=== PATIENT | male | born 1945 | race Caucasian/White ===

== ENCOUNTER 2021-06-16 14:17 | Inpatient (IN) ==
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
[2021-06-16] MEDS ORDERED: HYDROmorphone INJ 1 MG/ML SYRINGE IV STA ×2 (15:22→16:34)
[2021-06-16 15:50] LABS: Basophils # (auto) 0.05 K/uL (0-0.2); Basophils % (auto) 0.5 %; Eosinophils # (auto) 0.12 K/uL (0-0.5); Eosinophils % (auto) 1.3 %; Hematocrit (blood only) 37.5 % (42-52); Hemoglobin 13.5 g/dL (14.0-18.0); Immature Granulocytes # (auto) 0.01 K/uL (0.00-0.02); Immature Granulocytes % (auto) 0.1 %; Lymphocytes # (auto) 1.35 K/uL (1.2-3.4); Lymphocytes % (auto) 14.4 %; Mean Corpuscular Hemoglobin 32.4 pg (25-34); Mean Corpuscular Volume 89.9 fL (80-100); Mean Platelet Volume 8.8 fL (7.4-10.4); Monocytes # (auto) 0.91 K/uL (0.11-0.59); Monocytes % (auto) 9.7 %; Neutrophils # (auto) 6.94 K/uL (1.4-6.5); Platelet Count 282 K/uL (130-400); RDW Coefficient of Variation 13.5 % (11.5-14.5); RDW Standard Deviation 44.8 fL (36.4-46.3); Red Blood Count 4.17 M/uL (4.7-6.1); White Blood Count 9.38 K/uL (4.8-10.8)
[2021-06-16 16:12] LABS: Alanine Aminotransferase 15 U/L (12-78); Albumin Level 3.2 gm/dl (3.4-5.0); Aspartate Aminotransferase 13 U/L (15-37); Blood Urea Nitrogen 15 mg/dl (7-18); Calcium 9.2 mg/dl (8.5-10.1); Carbon Dioxide 26 mmol/L (21-32); Chloride 104 mmol/L (98-107); Est GFR (African American) 100.2 ml/min; Est GFR (Non-African American) 86.5 ml/min; Glucose 132 mg/dl (70-99); Potassium 3.4 mmol/L (3.5-5.1); Sodium 137 mmol/L (136-145)
[2021-06-16 16:15] LABS: Alkaline Phosphatase 47 U/L (45-117); Bilirubin,Total 0.9 mg/dl (0.2-1); Globulin 3.1 gm/dl (2.5-4.0); Total Protein 6.3 gm/dl (6.4-8.2)
--- NOTE | 2021-06-16 16:21 | CT Scan Report ---
LUMBAR SPINE CT WITHOUT CONTRAST CLINICAL HISTORY: severe back pain radiating down R leg COMPARISON STUDY: No previous studies for comparison. TECHNIQUE: Axial images of the lumbar spine were obtained without IV contrast. Sagittal and coronal r econstructions were viewed. Automated exposure control was utilized for the study. A dose lowering t echnique was utilized adhering to the principles of ALARA. FINDINGS: For purposes of numbering on this exam, L5-S1 disc space is assigned to axial image 247 of 292. Alignment of the lumbar spine is anatomic. There is no acute fracture. There is no suspicious le jennie by CT. Numerous bilateral renal calculi measure up to 5 mm. There is no hydronephrosis. Paravert ebral soft tissues are unremarkable. There is moderate multilevel facet arthrosis and degenerative di sc disease within the lumbar spine. The central canal and neural foramen are suboptimally assessed by CT. Central canal stenosis is most pronounced at L3-L4. There is probable moderate central canal fang nosis at this level. There is also a probable right paracentral disc herniation with inferior subliga mentous migration. This has mass effect upon the descending right L4 nerve root. There is moderate mu ltilevel neural foraminal stenosis. IMPRESSION: 1. No acute lumbar spine fracture or subluxation. 2. Multilevel degenerative disc disease and facet arthrosis within the lumbar spine. Suboptimal evalu ation of the central canal and neural foramen given CT technique. Suspected moderate central canal st enosis at L3-L4 with a probable right paracentral disc herniation with inferior subligamentous migrat ion. Severe narrowing of the right lateral recess with probable mass effect upon the descending right L4 nerve root. MRI could be obtained for confirmation. 3. Moderate multilevel neural foraminal stenosis. 4. Bilateral nephrolithiasis. ACT 112: Negative or not required by law. Electronically signed by: Jorge Alberto Joyce M.D. 06/16/2021 4:19 PM
[2021-06-16] MEDS ORDERED: ONDANSETRON 4 MG OD TAB PO PRN (20:41)
[2021-06-16] MEDS ORDERED: NALOXONE HCL 0.4 MG/1 ML VIAL/CARP IV PRN (20:41)
[2021-06-16] MEDS ORDERED: ACETAMINOPHEN 500 MG TAB PO PRN (20:41)
[2021-06-16] MEDS ORDERED: ACETAMINOPHEN 1,000 MG/100 ML VIAL IV PRN (20:41)
[2021-06-16] MEDS ORDERED: traMADol HCL 50 MG TABLET PO PRN (20:41)
[2021-06-16] MEDS ORDERED: PROMETHAZINE HCL 12.5 MG in SODIUM CHLORIDE 0.9% 50 ML IV PRN (20:41)
[2021-06-16] MEDS ORDERED: METOCLOPRAMIDE HCL INJ 5 MG/ML 2 ML VIAL IV PRN (20:41)
[2021-06-16] MEDS ORDERED: SODIUM CHLORIDE 0.9% 1000ML 1,000 ML IV SCH (20:41)
[2021-06-16] MEDS ORDERED: ONDANSETRON INJ 2 MG/ML 2 ML VIAL IV PRN (20:41)
[2021-06-16] MEDS: HYDROmorphone INJ 0.5 MG/0.5 ML SYR IV PRN (20:58)
[2021-06-16] MEDS ORDERED: POTASSIUM CHLORIDE 40 MEQ in SODIUM CHLORIDE 0.9% 1000ML 1,000 ML IV ONE (20:59)
[2021-06-16 21:15] LABS: Magnesium 1.8 mg/dl (1.8-2.4)
--- NOTE | 2021-06-16 21:42 | Hospitalist Consultation ---
Date of Consultation June 16, 2021 Assessment & Plan (1) Lumbar radiculopathy: Final Assessment and Recommendations as follows : Traumatic lumbar radiculopathy Worsening symptoms over the last 3 months Failed outpatient treatment hypertension, slightly elevated secondary discomfort hyperlipidemia on statin Rx prostate cancer status post surgery/radiation Hypokalemia secondary to home diuretic Rx Hyperglycemia rule out DM past tobacco abuse. Management of lumbar radiculopathy as per Orthopedics spine service. Analgesia, no NSAIDs please given elevated BP Replace potassium, hold home diuretic for now Check hemoglobin A1c SCDs for DVT prophylaxis; pharmacologic anticoagulation possibly held due to potential spine procedure Thank you very much for this consultation. Dr. Ge will follow patient's progress. Text document was generated using [employer] voice recognition software. It may contain grammatical or spelling errors. Kindly contact undersigned for clarification of any documentation item in question. History of Present Illness Reason for Consultation: Medical management Requesting Physician: Dr. Reddy Attending Physician: Bereket Reddy DO History of Present Illness PCP : Dr. Cheung History obtained from patient and records. Medical history significant for hypertension, hyperlipidemia, prostate cancer status post surgery/radiation, GERD, gout, past tobacco abuse. 3 months ago, patient developed L SS/disc herniation at L3-L4 as a result of jumping into a 4 feet swimming pool. Persistent right low back pain going to the right leg. Pain uncontrolled by pain medications and outpatient steroid injections. Patient saw Orthopedic housing development specialist last week who recommended decompressive surgery once with schedule. 3 days ago, patient noted worsening back pain after he tried to bend and reach over for an object. Unable to get up from bed. No fever, no chills. No incontinence symptoms. Patient consulted ER today. Lumbar spine CT report as follows: 1. No acute lumbar spine fracture or subluxation. 2. Multilevel degenerative disc disease and facet arthrosis within the lumbar spine. Suboptimal evaluation of the central canal and neural foramen given CT technique. Suspected moderate central canal stenosis at L3-L4 with a probable right paracentral disc herniation with inferior subligamentous migration. Severe narrowing of the right lateral recess with probable mass effect upon the descending right L4 nerve root. MRI could be obtained for confirmation. 3. Moderate multilevel neural foraminal stenosis. 4. Bilateral nephrolithiasis. Patient currently admitted under Orthopedics spine service. Patient currently more comfortable. Denies chest pain, S OB. Medical History as above Surgical History : Prostate surgery Family History : DM Personal/Social history : Past tobacco abuse, occasional EtOH intake, retired police lieutenant Allergies Allergy/AdvReac Type Severity Reaction Status Date / Time Tetanus Vaccines and Toxoid Allergy Intermediate Rash Verified 06/16/21 16:29 Home Medications Medication Instructions Recorded Confirmed Type Lactobacillus acidophilus 10 10,000 mmu cells PO DAILY 06/16/21 06/16/21 History billion cell capsule (Probiotic) allopurinol 100 mg tablet 100 mg PO QPM 06/16/21 06/16/21 History aspirin 81 mg tablet,delayed 81 mg PO QPM 06/16/21 06/16/21 History release atorvastatin 20 mg tablet 20 mg PO QPM 06/16/21 06/16/21 History chlorthalidone 25 mg tablet 25 mg PO QPM 06/16/21 06/16/21 History lisinopril 20 mg tablet 20 mg PO QPM 06/16/21 06/16/21 History magnesium oxide 400 mg (241.3 mg 400 mg PO QPM 06/16/21 06/16/21 History magnesium) tablet omeprazole 20 mg capsule,delayed 20 mg PO QPM 06/16/21 06/16/21 History release Patient History Medical History (Updated 06/16/21 @ 23:41 by Ana Chow PA-C) Dyslipidemia GERD (gastroesophageal reflux disease) Gout HTN (hypertension) Prostate cancer Surgical History No pertinent past surgical history Social History Smoking Status: Light tobacco smoker Second Hand Exposure: No; Do You Dip or Chew Tobacco: No; Tobacco Cessation Education Requested by Patient: No Hx Alcohol Use: No Preferred Language: Icelandic Communication Ability: Effective 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 Beliefs That Will Affect Care: None Current Living Situation: Spouse Other Information That Helps Us Care for You: No Feels Safe at Home: Yes Safety Concerns: Feels Safe At This Time Assistive Devices: Cane, Crutches and Walker Review of Systems Review of Systems: As per HPI, all 10 systems reviewed, all other ROS negative Physical Exam Physical Exam: GENERAL: Comfortable, pleasant, no respiratory distress SKIN: Normal color, warm HEENT: [place] palpebral conjunctivae, no ptosis, dry buccal mucosa NECK : Supple, no tenderness CHEST : CTA, no tenderness HEART : RRR, no obvious murmurs ABDOMEN: Some distention, nontender BACK : Minimal right flank tenderness EXTREMITIES : No LE swelling/tenderness, no other conspicuous deformities noted NEUROLOGIC : Coherent, no facial asymmetry, no other gross focality Results & Data Results & Data ([facility]) Vital Signs (Past 12 Hours) Vital Signs Temp Pulse Pulse Pulse Resp BP BP 06/16/21 20:40 36.6 C 85 16 06/16/21 20:08 80 18 141/80 H 06/16/21 18:00 68 18 139/94 06/16/21 16:08 78 18 151/80 H 06/16/21 14:28 36.5 C 68 18 131/71 BP Pulse Ox 06/16/21 20:40 154/69 H 97 06/16/21 20:08 98 06/16/21 18:00 95 06/16/21 16:08 98 06/16/21 14:28 97 Laboratory Results Laboratory Results WBC 9.38 K/uL (4.8-10.8) 06/16/21 15:35 RBC 4.17 M/uL (4.7-6.1) L 06/16/21 15:35 Hgb 13.5 g/dL (14.0-18.0) L 06/16/21 15:35 Hct 37.5 % (42-52) L 06/16/21 15:35 MCV 89.9 fL (80-100) 06/16/21 15:35 MCH 32.4 pg (25-34) 06/16/21 15:35 MCHC 36.0 g/dL (32-36) 06/16/21 15:35 RDW Std Deviation 44.8 fL (36.4-46.3) 06/16/21 15:35 RDW Coeff of Bertha 13.5 % (11.5-14.5) 06/16/21 15:35 Plt Count 282 K/uL (130-400) 06/16/21 15:35 MPV 8.8 fL (7.4-10.4) 06/16/21 15:35 Immature Gran % (Auto) 0.1 % 06/16/21 15:35 Neut % (Auto) 74.0 % 06/16/21 15:35 Lymph % (Auto) 14.4 % 06/16/21 15:35 [place] % (Auto) 9.7 % 06/16/21 15:35 Eos % (Auto) 1.3 % 06/16/21 15:35 Baso % (Auto) 0.5 % 06/16/21 15:35 Neut # (Auto) 6.94 K/uL (1.4-6.5) H 06/16/21 15:35 Lymph # (Auto) 1.35 K/uL (1.2-3.4) 06/16/21 15:35 [place] # (Auto) 0.91 K/uL (0.11-0.59) H 06/16/21 15:35 Eos # (Auto) 0.12 K/uL (0-0.5) 06/16/21 15:35 Baso # (Auto) 0.05 K/uL (0-0.2) 06/16/21 15:35 Immature Gran # (Auto) 0.01 K/uL (0.00-0.02) 06/16/21 15:35 Sodium 137 mmol/L (136-145) 06/16/21 15:35 Potassium 3.4 mmol/L (3.5-5.1) L 06/16/21 15:35 Chloride 104 mmol/L (98-107) 06/16/21 15:35 Carbon Dioxide 26 mmol/L (21-32) 06/16/21 15:35 Anion Gap 8.0 (3-11) 06/16/21 15:35 BUN 15 mg/dl (7-18) 06/16/21 15:35 Creatinine 0.78 mg/dl (0.6-1.4) 06/16/21 15:35 Est Cr Clr Drug Dosing Not Reportable 06/16/21 15:35 Est GFR ( Amer) 100.2 ml/min 06/16/21 15:35 Est GFR (Non-Af Amer) 86.5 ml/min 06/16/21 15:35 BUN/Creatinine Ratio 19.0 (10-20) 06/16/21 15:35 Glucose 132 mg/dl (70-99) H 06/16/21 15:35 Calcium 9.2 mg/dl (8.5-10.1) 06/16/21 15:35 Magnesium 1.8 mg/dl (1.8-2.4) 06/16/21 15:35 Total Bilirubin 0.9 mg/dl (0.2-1) 06/16/21 15:35 AST 13 U/L (15-37) L 06/16/21 15:35 ALT 15 U/L (12-78) 06/16/21 15:35 Alkaline Phosphatase 47 U/L (45-117) 06/16/21 15:35 Total Protein 6.3 gm/dl (6.4-8.2) L 06/16/21 15:35 Albumin 3.2 gm/dl (3.4-5.0) L 06/16/21 15:35 Globulin 3.1 gm/dl (2.5-4.0) 06/16/21 15:35 Albumin/Globulin Ratio 1.0 (0.9-2) 06/16/21 15:35 COVID-19 Eval Order Covid19 at [facility] 06/16/21 16:25 SARS-CoV-2 (PCR) NEGATIVE (Negative) 06/16/21 16:[address] 06/16/21 15:[address] WITHOUT CONTRAST CLINICAL HISTORY: severe back pain radiating down R leg COMPARISON STUDY: No previous studies for comparison. TECHNIQUE: Axial images of the lumbar spine were obtained without IV contrast. Sagittal and coronal reconstructions were viewed. Automated exposure control was utilized for the study. A dose lowering technique was utilized adhering to the principles of ALARA. FINDINGS: For purposes of numbering on this exam, L5-S1 disc space is assigned to axial image 247 of 292. Alignment of the lumbar spine is anatomic. There is no acute fracture. There is no suspicious lesion by CT. Numerous bilateral renal calculi measure up to 5 mm. There is no hydronephrosis. Paravertebral soft tissues are unremarkable. There is moderate multilevel facet arthrosis and degenerative disc disease within the lumbar spine. The central canal and neural foramen are suboptimally assessed by CT. Central canal stenosis is most pronounced at L3-L4. There is probable moderate central canal stenosis at this level. There is also a probable right paracentral disc herniation with inferior subligamentous migration. This has mass effect upon the descending right L4 nerve root. There is moderate multilevel neural foraminal stenosis. IMPRESSION: 1. No acute lumbar spine fracture or subluxation. 2. Multilevel degenerative disc disease and facet arthrosis within the lumbar spine. Suboptimal evaluation of the central canal and neural foramen given CT technique. Suspected moderate central canal stenosis at L3-L4 with a probable right paracentral disc herniation with inferior subligamentous migration. Severe narrowing of the right lateral recess with probable mass effect upon the descending right L4 nerve root. MRI could be obtained for confirmation. 3. Moderate multilevel neural foraminal stenosis. 4. Bilateral nephrolithiasis. ACT 112: Negative or not required by law. Electronically signed by: Jorge Alberto Joyce M.D. 06/16/2021 4:19 PM
[2021-06-16] MEDS: allopurinoL 100 MG TAB PO SCH (22:19)
[2021-06-16] MEDS: ATORVASTATIN 20 MG TAB PO SCH (22:19)
[2021-06-16] MEDS: PANTOprazole 40 MG TAB PO SCH (22:20)
[2021-06-16] MEDS: lisinopril 20 MG TAB PO SCH (23:14)
[2021-06-17] MEDS: HYDROmorphone INJ 0.5 MG/0.5 ML SYR IV PRN ×2 (00:05→04:37)
[2021-06-17 05:10] LABS: Estimated Average Glucose 137 mg/dl; Hemoglobin A1C 6.4 % (4.5-5.6)
[2021-06-17] MEDS: oxyCODONE HCL IR 5 MG TAB (IMMEDIATE RELEASE) PO PRN ×4 (06:16→23:22)
[2021-06-17] MEDS: HYDROmorphone INJ 1 MG/ML SYRINGE IV PRN ×3 (07:31→19:21)
[2021-06-17] MEDS: ADVANCED PROBIOTIC 1250 MG CAPSULE PO SCH (07:32)
[2021-06-17] MEDS ORDERED: POTASSIUM CHLORIDE CRTAB 20 MEQ TABCR PO STA (07:35)
--- NOTE | 2021-06-17 08:40 | XRay Report ---
XR chest 1V portable HISTORY: Preop. COMPARISON: None. FINDINGS: The lungs are clear. Cardiac silhouette is normal in size. No pleural effusions. No pneumot horax. IMPRESSION: No acute process. ACT 112: Negative or not required by law. Electronically signed by: Fadi Kate M.D. 06/17/2021 8:38 AM
--- NOTE | 2021-06-17 08:55 | History & Physical Report ---
Date of Service June 17, 2021 Assessment & Plan (1) Lumbar radiculopathy: Plan: At this point patient's condition has progressively worsened. He has had neurologic decline resulting in weakness in the right leg. He is unable to walk at this point. I discussed options with the patient and believe he would benefit from undergoing emergent lumbar decompression and fusion to address the canal stenosis as well as the disc herniation. We discussed the risks and benefits of the surgery itself I would like to proceed. We will make him n.p.o. after midnight and likely be able to do his case tomorrow if medically appropriate. Admission and Anticipated Discharge Date Admission Date: June 16, 2021 History of Present Illness Chief Complaint: Right leg weakness Primary Care Provider: Alonzo Madrigal Skye Patient is a pleasant 76-year-old male who has been having difficulties with pain coming from the right buttock going down the right thigh. Originally it was thought that he had an issue with his hip. He did undergone an MRI of his right hip with minimal pathology noted. An MRI of his lumbar spine revealed an L3-4 right-sided disc herniation with inferior migration or free fragment he was treated through pain management as an outpatient. Over the past 3 days he has had significant increase in pain in the right leg when he leaned forward to pick something up. He contacted the office stating that he was unable to walk and is referred to the emergency room. He was given pain medications as well as steroids and the pain was somewhat better in the emergency room. This morning however his pain is worse. He can barely roll over in bed. He is afraid to try to stand and walk as his right leg feels weak and feels it is going to give out. He is not having symptoms on the left-hand side. He denies any other numbness, tingling, or paresthesias. Allergies Allergy/AdvReac Type Severity Reaction Status Date / Time Tetanus Vaccines and Toxoid Allergy Intermediate Rash Verified 06/16/21 16:29 Home Medications Medication Instructions Recorded Confirmed Type Lactobacillus acidophilus 10 10,000 mmu cells PO DAILY 06/16/21 06/16/21 History billion cell capsule (Probiotic) allopurinol 100 mg tablet 100 mg PO QPM 06/16/21 06/16/21 History aspirin 81 mg tablet,delayed 81 mg PO QPM 06/16/21 06/16/21 History release atorvastatin 20 mg tablet 20 mg PO QPM 06/16/21 06/16/21 History chlorthalidone 25 mg tablet 25 mg PO QPM 06/16/21 06/16/21 History lisinopril 20 mg tablet 20 mg PO QPM 06/16/21 06/16/21 History magnesium oxide 400 mg (241.3 mg 400 mg PO QPM 06/16/21 06/16/21 History magnesium) tablet omeprazole 20 mg capsule,delayed 20 mg PO QPM 06/16/21 06/16/21 History release Past Med/Surg History Medical History Anemia Dyslipidemia GERD (gastroesophageal reflux disease) Gout HTN (hypertension) Prostate cancer Smoker Surgical History No pertinent past surgical history Social History Smoking Status: Light tobacco smoker Second Hand Exposure: No; Do You Dip or Chew Tobacco: No; Tobacco Cessation Education Requested by Patient: No Hx Alcohol Use: No Preferred Language: Kittitian Communication Ability: Effective 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 He is in visible distress he has difficulties rolling from side to side. His motor exam is limited secondary to pain but there is weakness with a strength of 3+ out of 5 in the right quadriceps compared to left. Remaining strength is 5 out of 5 throughout his sensation is altered in L3 distribution on the right-hand side to sharp and dull. He is nontender with logrolling of the hips. His abdomen soft nontender his calves are supple nontender. Cardiovascular exam reveals no gross abnormalities. Skin is intact. Results & Data Results & Data ([facility]) Vital Signs (Past 12 Hours) Vital Signs Temp Pulse Pulse Resp BP Pulse Ox 06/17/21 07:12 36.7 C 72 18 132/71 94 06/16/21 22:21 36.6 C 68 16 135/[address] scan of the lumbar spine that was performed recently was compared to an MRI that was performed in March of this year. There is baseline stenosis at L3-4 with a right paracentral disc herniation with inferior migration of free fragment appears to be somewhat larger than noted on the CT scan. There is multilevel spondylosis no fractures are noted. Code Status & VTE Plan VTE Prophylaxis Plan VTE Prophylaxis will be ordered: Yes
--- NOTE | 2021-06-17 16:06 | Anesthesiology Consultation ---
Date of Service June 17, 2021 Assessment & Plan (1) Encounter for pre-operative examination: Chart Review Chart Review: entry level finance initiated History Surgery Operation Date: 06/18/21 08:25 Proposed Procedures p L3-L4 Decompression Fusion - Bereket Reddy DO Height/Weight Height: 5 ft 9 in Weight: 71.5 kg Allergies Allergy/AdvReac Type Severity Reaction Status Date / Time Tetanus Vaccines and Toxoid Allergy Intermediate Rash Verified 06/16/21 16:29 Medications Home Medications Medication Instructions Recorded Confirmed Last Taken Lactobacillus acidophilus 10 10,000 mmu cells PO DAILY 06/16/21 06/16/21 06/16/21 billion cell capsule (Probiotic) allopurinol 100 mg tablet 100 mg PO QPM 06/16/21 06/16/21 06/16/21 aspirin 81 mg tablet,delayed 81 mg PO QPM 06/16/21 06/16/21 06/16/21 release atorvastatin 20 mg tablet 20 mg PO QPM 06/16/21 06/16/21 06/16/21 chlorthalidone 25 mg tablet 25 mg PO QPM 06/16/21 06/16/21 06/16/21 lisinopril 20 mg tablet 20 mg PO QPM 06/16/21 06/16/21 06/16/21 magnesium oxide 400 mg (241.3 mg 400 mg PO QPM 06/16/21 06/16/21 06/16/21 magnesium) tablet omeprazole 20 mg capsule,delayed 20 mg PO QPM 06/16/21 06/16/21 06/16/21 release Active Medications Generic Name Dose Route Start Last Admin Trade Name Freq PRN Reason Stop Dose Admin Allopurinol 100 mg 06/16/21 21:00 06/16/21 22:19 Allopurinol 100 Mg Tab PO 07/16/21 20:59 Not Given QPM JOSUE Atorvastatin Calcium 20 mg 06/16/21 21:00 06/16/21 22:19 Atorvastatin 20 Mg Tab PO 07/16/21 20:59 Not Given QPM JOUSE Hydromorphone HCl 0.5 mg 06/16/21 20:41 06/17/21 04:37 Hydromorphone Inj 0.5 Mg/0.5 Ml Syr IV 06/30/21 20:40 0.5 mg Q3H PRN Administration MOD pain (scale 4-6) & Pre PT Hydromorphone HCl 1 mg 06/16/21 20:41 06/17/21 11:39 Hydromorphone Inj 1 Mg/Ml Syringe IV 06/30/21 20:40 1 mg Q3H PRN Administration severe pain (scale 7-10) Lactobacillus Acidoph/Casei/Rhamnos 2 cap 06/17/21 09:00 06/17/21 07:32 Advanced Probiotic 1250 Mg Capsule PO 07/17/21 08:59 2 cap DAILY JOSUE Administration Lisinopril 20 mg 06/16/21 21:05 06/16/21 23:14 Lisinopril 20 Mg Tab PO 07/16/21 21:04 Not Given QPM JOSUE Ondansetron HCl 4 mg 06/16/21 20:41 06/17/21 06:14 Ondansetron Inj 2 Mg/Ml 2 Ml Vial IV 07/16/21 20:40 4 mg Q6H PRN Administration Nausea &/or Vomiting Oxycodone HCl 5 - 10 mg 06/16/21 20:41 06/17/21 10:24 Oxycodone Hcl Ir 5 Mg Tab (Immediate Release) PO 06/30/21 20:40 10 mg Q4H PRN Administration mod to severe pain Pantoprazole Sodium 40 mg 06/16/21 21:00 06/16/21 22:20 Pantoprazole 40 Mg Tab PO 07/16/21 20:59 Not Given QPM JOSUE NPO Date Last Intake of Fluids: 06/16/21 Time Last Intake of Fluids: 21:00 Past Medical History Medical History Dyslipidemia GERD (gastroesophageal reflux disease) Gout HTN (hypertension) Prostate cancer Past Surgical History Surgical History No pertinent past surgical history Social History Smoking Status: Light tobacco smoker tobacco type: cigars Do You Dip or Chew Tobacco: No Hx Alcohol Use: No substance use type: prescription drug Physical Exam Vital Signs Last Vital Signs Temp 97.7 F 06/17/21 15:29 Pulse 74 06/17/21 15:29 Resp 18 06/17/21 15:29 BP 123/71 06/17/21 15:29 Pulse Ox 95 06/17/21 15:29 Testing Laboratory Results 06/16/21 15:35 06/16/21 15:35 Hemoglobin A1c 6.4 % (4.5-5.6) H 06/16/21 15:35 Laboratory Tests 06/16/21 16:25 SARS-CoV-2 (PCR) NEGATIVE Electrocardiogram Date: 06/17/21 Findings: + NSR @ (66 bpm) Chest X-Ray Date: 06/17/21 Findings: + NAD
[2021-06-17] MEDS ORDERED: GLUCAGON FOR INJ 1 MG VIAL SQ PRN (16:50)
[2021-06-17] MEDS ORDERED: GLUCOSE 10 TABS/TUBE PO PRN (16:50)
[2021-06-17] MEDS ORDERED: GLUCOSE 40% GEL 15 GM TUBE PO PRN (16:50)
[2021-06-17] MEDS ORDERED: DEXTROSE 50% 50 ML SYRINGE IV PRN (16:50)
[2021-06-17] MEDS ORDERED: CARBOHYDRATES FOR HYPOGLYCEMIA PO PRN (16:50)
--- NOTE | 2021-06-17 16:54 | Hospitalist Progress Note ---
Date of Service June 17, 2021 Assessment & Plan (1) Lumbar radiculopathy: Plan: This is a 76-year-old male who has significant past medical history of HTN, HLD, gout, GERD who presents to ED secondary to worsening symptoms of lumbar radiculopathy. Plan to undergo Lumbar decompression fusion of L3-[address] Reddy. CXR and EKG reviewed. Pt able to perform at least 4 METS of activity at baseline w/o cardiac symptoms. From a medical standpoint he is cleared for surgery Pt admitted to med/surg defer pain management and therapy to Orthopedics Make NPO after midnight Possible procedure in a.m. (2) HTN (hypertension): Plan: Bp stable continue lisinopril with parameters hold chlorthalidone (3) Dyslipidemia: Plan: continue statin (4) Pre-diabetes: Plan: hyperglycemia noted in ED A1C 6.4 will consult hematology nurse educator monitor accuchecks, if bsg consistently > 180 will add coverage anticipate hyperglycemia post op (5) GERD (gastroesophageal reflux disease): Plan: continue PPI (6) Gout: Plan: continue allopurinol Plan: DVT ppx: SCD/TEDS, per surgery Dispo: per primary FULL CODE PCP: Skye Pt was seen and examined in collaboration with Dr. Ge, please see addendum Thank you for this consultation. We will follow the patient with you during their hospital stay. You can reach a member of the [facility] Hospitalist Team 15/03 via hospitalist role on tiger text. Admission and Anticipated Discharge Date Admission Date: June 16, 2021 Supervising Physician Co-Signing Physician Notes I have seen and examined the patient and have discussed the case with the provider above. I agree with the assessment and plan as stated. My examination reflects as above. N.p.o. midnight for lumbar decompression tomorrow. We will continue to manage medically. Subjective Patient was seen and examined in room 379-1. Follow up Lumbar Radiculopathy. Overall this morning he feels well except for low back pain. He denies f/c/s, chest pain, sob, n/v/d, abdominal pain. He is eating and drinking okay. Plan for surgery tomorrow. He denies any issues with CP/SOB as outpt. Denies hx of CAD or CHF. Admits to being able to walk 1 flight of stairs w/o chest pain or SOB but would experience back pain. Review of Systems Review of Systems: All systems reviewed & are unremarkable except as noted in HPI & below Physical Exam Physical Exam: Gen: WD/WN, M, NAD, A&O x3 HEENT: Normocephalic, atraumatic, conjunctivae moist, sclerae anicteric, mucous membranes moist. Lung: Clear to Auscultation bilaterally, no wheezes/rales/rhonchi Heart: Regular rate, regular rhythm, no murmurs, rubs, or gallops Abdomen: Soft, NT, ND +BS x 4 Extremities: No edema Skin: Warm, no rash, negative turgor. Results & Data Results & Data ([facility]) Vital Signs (Past 12 Hours) Vital Signs Temp Pulse Resp BP Pulse Ox 06/17/21 15:29 36.5 C 74 18 123/71 95 06/17/21 07:12 36.7 C 72 18 132/71 94 Diagnostic Findings Lumbar Spine CT 06/16/21 15:[address] WITHOUT CONTRAST CLINICAL HISTORY: severe back pain radiating down R leg COMPARISON STUDY: No previous studies for comparison. TECHNIQUE: Axial images of the lumbar spine were obtained without IV contrast. Sagittal and coronal reconstructions were viewed. Automated exposure control was utilized for the study. A dose lowering technique was utilized adhering to the principles of ALARA. FINDINGS: For purposes of numbering on this exam, L5-S1 disc space is assigned to axial image 247 of 292. Alignment of the lumbar spine is anatomic. There is no acute fracture. There is no suspicious lesion by CT. Numerous bilateral renal calculi measure up to 5 mm. There is no hydronephrosis. Paravertebral soft tissues are unremarkable. There is moderate multilevel facet arthrosis and degenerative disc disease within the lumbar spine. The central canal and neural foramen are suboptimally assessed by CT. Central canal stenosis is most pronounced at L3-L4. There is probable moderate central canal stenosis at this level. There is also a probable right paracentral disc herniation with inferior subligamentous migration. This has mass effect upon the descending right L4 nerve root. There is moderate multilevel neural foraminal stenosis. IMPRESSION: 1. No acute lumbar spine fracture or subluxation. 2. Multilevel degenerative disc disease and facet arthrosis within the lumbar spine. Suboptimal evaluation of the central canal and neural foramen given CT technique. Suspected moderate central canal stenosis at L3-L4 with a probable right paracentral disc herniation with inferior subligamentous migration. Severe narrowing of the right lateral recess with probable mass effect upon the descending right L4 nerve root. MRI could be obtained for confirmation. 3. Moderate multilevel neural foraminal stenosis. 4. Bilateral nephrolithiasis. ACT 112: Negative or not required by law. Electronically signed by: Jorge Alberto Joyce M.D. 06/16/2021 4:19 PM Chest X-Ray 06/17/21 07:36 XR chest 1V portable HISTORY: Preop. COMPARISON: None. FINDINGS: The lungs are clear. Cardiac silhouette is normal in size. No pleural effusions. No pneumothorax. IMPRESSION: No acute process. ACT 112: Negative or not required by law. Electronically signed by: Fadi Kate M.D. 06/17/2021 8:38 AM Medications Administered Medication List Allopurinol (Allopurinol 100 Mg Tab) 100 mg PO QPM JOSUE Stop: 07/16/21 20:59 Last Admin: 06/16/21 22:19 Dose: Not Given Documented by: [id number] Atorvastatin Calcium (Atorvastatin 20 Mg Tab) 20 mg PO QPM JOSEU Stop: 07/16/21 20:59 Last Admin: 06/16/21 22:19 Dose: Not Given Documented by: [id number] Hydromorphone HCl (Hydromorphone Inj 0.5 Mg/0.5 Ml Syr) 0.5 mg IV Q3H PRN PRN Reason: MOD pain (scale 4-6) & Pre PT Stop: 06/30/21 20:40 Last Admin: 06/17/21 04:37 Dose: 0.5 mg Documented by: [id number] Admin: 06/17/21 00:05 Dose: 0.5 mg Documented by: [id number] Admin: 06/16/21 20:58 Dose: 0.5 mg Documented by: [id number] Hydromorphone HCl (Hydromorphone Inj 1 Mg/Ml Syringe) 1 mg IV Q3H PRN PRN Reason: severe pain (scale 7-10) Stop: 06/30/21 20:40 Last Admin: 06/17/21 11:39 Dose: 1 mg Documented by: [id number] Admin: 06/17/21 07:31 Dose: 1 mg Documented by: [id number] Lactobacillus Acidoph/Casei/Rhamnos (Advanced Probiotic 1250 Mg Capsule) 2 cap PO DAILY JOSUE Stop: 07/17/21 08:59 Last Admin: 06/17/21 07:32 Dose: 2 cap Documented by: [id number] Lisinopril (Lisinopril 20 Mg Tab) 20 mg PO QPM JOSUE Stop: 07/16/21 21:04 Last Admin: 06/16/21 23:14 Dose: Not Given Documented by: [id number] Ondansetron HCl (Ondansetron Inj 2 Mg/Ml 2 Ml Vial) 4 mg IV Q6H PRN PRN Reason: Nausea &/or Vomiting Stop: 07/16/21 20:40 Last Admin: 06/17/21 06:14 Dose: 4 mg Documented by: [id number] Oxycodone HCl (Oxycodone Hcl Ir 5 Mg Tab (Immediate Release)) 5 - 10 mg PO Q4H PRN PRN Reason: mod to severe pain Stop: 06/30/21 20:40 Last Admin: 06/17/21 16:25 Dose: 10 mg Documented by: [id number] Admin: 06/17/21 10:24 Dose: 10 mg Documented by: [id number] Admin: 06/17/21 06:16 Dose: 10 mg Documented by: [id number] Pantoprazole Sodium (Pantoprazole 40 Mg Tab) 40 mg PO QPM JOSUE Stop: 07/16/21 20:59 Last Admin: 06/16/21 22:20 Dose: Not Given Documented by: [id number] Discontinued Medications Hydromorphone HCl (Hydromorphone Inj 1 Mg/Ml Syringe) 1 mg IV NOW STA Stop: 06/16/21 15:23 Last Admin: 06/16/21 15:44 Dose: 1 mg Documented by: [id number] Hydromorphone HCl (Hydromorphone Inj 1 Mg/Ml Syringe) 1 mg IV NOW STA Stop: 06/16/21 16:35 Last Admin: 06/16/21 16:44 Dose: 1 mg Documented by: [id number] Sodium Chloride (Nss 1000ml) 1,000 mls @ 75 mls/hr IV .[id number] JOSUE Stop: 07/16/21 20:40 Last Infusion: 06/16/21 21:09 Dose: 0 mls/hr Documented by: [id number] Admin: 06/16/21 20:59 Dose: 75 mls/hr Documented by: [id number] Potassium Chloride 40 meq/ (Sodium Chloride) 1,020 mls @ 60 mls/hr IV .Q17H ONE Stop: 06/17/21 13:58 Last Infusion: 06/17/21 14:44 Dose: 0 mls/hr Documented by: [id number] Admin: 06/16/21 21:08 Dose: 60 mls/hr Documented by: [id number] Methylprednisolone (Methylprednisolone 40 Mg/Ml Vial) 10 mg IV NOW STA Stop: 06/16/21 15:23 Last Admin: 06/16/21 15:45 Dose: 10 mg Documented by: [id number] Potassium Chloride (Potassium Chloride Crtab 20 Meq Tabcr) 40 meq PO NOW STA Stop: 06/17/21 07:36 Last Admin: 06/17/21 08:34 Dose: 40 meq Documented by: [id number] ECG Rate (beats per minute): 66 Rhythm: normal sinus
[2021-06-17] MEDS: lisinopril 20 MG TAB PO SCH (20:50)
[2021-06-17] MEDS: ATORVASTATIN 20 MG TAB PO SCH (20:50)
[2021-06-17] MEDS: allopurinoL 100 MG TAB PO SCH (20:50)
[2021-06-17] MEDS: PANTOprazole 40 MG TAB PO SCH (20:51)
[2021-06-17] MEDS ORDERED: SODIUM CHLORIDE 0.9% 500 ML IV ONE (23:14)
[2021-06-18] MEDS: POTASSIUM CHLORIDE 40 MEQ in SODIUM CHLORIDE 0.9% 1000ML 1,000 ML IV SCH ×2 (00:26→17:38)
[2021-06-18] MEDS: HYDROmorphone INJ 1 MG/ML SYRINGE IV PRN ×4 (01:45→11:25)
--- NOTE | 2021-06-18 05:11 | Electrocardiogram Report ---
Test Reason : Blood Pressure : / mmHG Vent. Rate : 066 BPM Atrial Rate : 066 BPM P-R Int : 134 ms QRS Dur : 094 ms QT Int : 412 ms P-R-T Axes : 035 003 004 degrees QTc Int : 431 ms Normal sinus rhythm Normal ECG No previous ECGs available Confirmed by Isiah Sahni ([id number]) on 06/18/2021 5:11:09 AM Referred By: Bereket Reddy Confirmed By:Isiah Sahni
[2021-06-18 07:37] LABS: Hematocrit (blood only) 37.6 % (42-52); Hemoglobin 12.9 g/dL (14.0-18.0); Mean Corpuscular Hgb Conc 34.3 g/dL (32-36); Mean Corpuscular Volume 93.3 fL (80-100); Mean Platelet Volume 9.1 fL (7.4-10.4); Platelet Count 273 K/uL (130-400); RDW Coefficient of Variation 13.6 % (11.5-14.5); RDW Standard Deviation 46.8 fL (36.4-46.3); Red Blood Count 4.03 M/uL (4.7-6.1)
[2021-06-18 07:44] LABS: Partial Thromboplastin Ratio 0.9; Partial Thromboplastin Time 24.7 Seconds (21.0-31.0); Prothrombin Time 10.2 Seconds (9.0-12.0)
[2021-06-18 08:18] LABS: BUN Creatinine Ratio 24.2 (10-20); Calcium 9.1 mg/dl (8.5-10.1); Creatinine Clr Calc Pharmacy 80.1 ml/min; Est GFR (African American) 101.3 ml/min; Est GFR (Non-African American) 87.4 ml/min; Potassium 4.1 mmol/L (3.5-5.1)
[2021-06-18] MEDS: ADVANCED PROBIOTIC 1250 MG CAPSULE PO SCH (09:24)
--- NOTE | 2021-06-18 11:35 | Hospitalist Progress Note ---
Date of Service June 18, 2021 Assessment & Plan Admission and Anticipated Discharge Date Admission Date: June 16, 2021 Results & Data Results & Data ([facility]) Vital Signs (Past 12 Hours) Vital Signs Temp Pulse Resp BP Pulse Ox 06/18/21 07:25 36.6 C 61 16 120/62 93
[2021-06-18] MEDS ORDERED: HYDROmorphone INJ 1 MG/ML SYRINGE IV PRN (11:58)
[2021-06-18] MEDS ORDERED: ePHEDrine sulfate 50 MG/ML AMP IV PRN (11:58)
[2021-06-18] MEDS ORDERED: LABETALOL HCL IV 5 MG/ML 20ML IV PRN (11:58)
[2021-06-18] MEDS ORDERED: PHENYLEPHRINE 100MCG/ML 5ML SYR IV PRN (11:58)
[2021-06-18] MEDS ORDERED: fentaNYL citrate 100 MCG/2 ML VIAL IV PRN (11:58)
[2021-06-18] MEDS ORDERED: ATROPINE SULFATE 0.1 MG/ML 10ML SYR IV PRN (11:58)
[2021-06-18] MEDS ORDERED: ONDANSETRON INJ 2 MG/ML 2 ML VIAL IV PRN ×2 (11:58→16:11)
[2021-06-18] MEDS ORDERED: EPINEPHrine INJ 1 MG/ML AMP ONE (12:08)
[2021-06-18] MEDS ORDERED: BUPIVACAINE 0.5 % 5 MG/1 ML MPF 30ML VIAL ONE (12:08)
[2021-06-18] MEDS ORDERED: fentaNYL citrate 100 MCG/2 ML VIAL ONE (12:34)
[2021-06-18] MEDS ORDERED: MIDAZOLAM HCL 1 MG/ML 2ML VIAL ONE (12:34)
--- NOTE | 2021-06-18 12:55 | History & Physical Bridge Note ---
Date of Service June 18, 2021 History & Physical Bridge Note I have examined the patient, reviewed the History & Physical and in the interval since the performance of the History & Physical I have noted the following changes of clinical significance: no changes noted Lumbar decompression and fusion L3-L4.
[2021-06-18] MEDS ORDERED: ceFAZolin 2000MG 2,000 MG/15 ML SYR IV ONE (12:59)
[2021-06-18] MEDS ORDERED: ONDANSETRON INJ 2 MG/ML 2 ML VIAL ONE (13:39)
[2021-06-18] MEDS ORDERED: ePHEDrine sulfate 50 MG/ML AMP ONE (13:39)
[2021-06-18] MEDS ORDERED: PHENYLEPHRINE 100MCG/ML 5ML SYR ONE (13:39)
[2021-06-18] MEDS ORDERED: HYDROmorphone INJ 2 MG/ML SYR/VIAL ONE (13:39)
[2021-06-18] MEDS ORDERED: LIDOCAINE 2% 2 ML VIAL/AMP(20MG/ML) INFIL ONE (13:39)
[2021-06-18] MEDS ORDERED: NEOSTIGMINE METHYLSULFATE 1 MG/ML 10ML VIAL ONE (13:39)
[2021-06-18] MEDS ORDERED: DEXAMETHASONE SOD INJ 4 MG/ML VIAL ONE (13:39)
[2021-06-18] MEDS ORDERED: GLYCOPYRROLATE 0.2 MG/ML VIAL ONE (13:39)
[2021-06-18] MEDS ORDERED: LARYING-O-JET KIT (LTA) ONE (13:39)
[2021-06-18] MEDS ORDERED: PROPOFOL IV EMULSION 10 MG/ML 20 ML VIAL IV ONE (13:39)
[2021-06-18] MEDS ORDERED: ROCURONIUM BROMIDE 10 MG/ML 5 ML VIAL IV ONE (13:39)
[2021-06-18] MEDS ORDERED: FLOSEAL HEMOSTATIC MATRIX 10ML TOP ONE (13:58)
--- NOTE | 2021-06-18 14:38 | Operative Report ---
Post Operative Report Pre & Post Diagnosis Operation Date: 06/18/21 08:25 Pre-Op Diagnosis: Spinal Stenosis with radiculopathy Post-Op Diagnosis: Same I identified the patient and participated in the time-out.: Yes Procedure Operation Date: 06/18/21 08:25 Actual Procedures #1 lumbar decompression bilateral medial facetectomies and foraminotomies L3-L4 per #2 posterior spinal fusion L3-L4. #3 placement posterior instrumentation L3-L4. #4 interbody fusion L3-L4. #5 placement peek cage 10 x 26 mm at L3-L4. #6 placement locally harvested morselized autograft in the posterior gutters. #7 placement infuse collagen sponge, and master graft in the posterior lateral gutters and I factor and interbody space. Surgeon Bereket Reddy DO Senior Grants Officer Mica Ibrahim Estimated Blood Loss 50 Findings Consistent with Post-Op Diagnosis Specimens None Indications This is a 76-year-old male presents with marked decline in status significant weakness to the right quadricep and subsequently here for urgent decompression fusion. Description of Procedure Patient was met with identified informed consent obtained. Patient was then taken to the operative suite underwent a patient placed in a prone position the [facility] top Franck frame. All bony prominences well-padded eyes inspected to ensure no external pressure placed upon the. This point the lumbar spine was prepped and draped in normal sterile fashion. Sharp dissection with the assistance of Bovie cartilage from down to and exposing the lamina and transverse processes of L3 and L4. From caudal to cephalad fashion complete laminectomy L3 was performed including bilateral medial facetectomies and foraminotomies addressing all stenosis as well as a massive disc herniation on the right with caudal migration. After complete decompression pedicle screws were placed in L3 and L4 bilaterally with assistance of fluoroscopy and appropriately sized bernice placed. By way of a transforaminal approach on right complete discectomy was performed endplates curetted to subcortical bleeding bone and a 10 x 26 mm peek cage filled I factor tapped in position. The rods then compressed locked into final position bilaterally. The transverse processes of L2-3 and L4 burred to subcortically bone. Infuse collagen sponge master graft local autograft was placed in the posterior gutters. 15 round JANNY drain inserted. Incision was then closed with 1 Vicryl to fascia 2-0 Vicryl subcutaneously and 4 Monocryl for final skin closure. Steri-Strip sterile dressings placed. Patient waken taken PACU stable condition. Please note spinal providing was utilized at the procedure no changes noted. Lastly Mica Ibrahim was present at the entire procedure with the patient positioning complex portions of the surgery and final skin closure. I attest to the content of the Intraoperative Record and any orders documented therein. Any exceptions are noted below.
--- NOTE | 2021-06-18 14:44 | Fluoroscopy Report ---
FL lumbar spine 2-3V CLINICAL HISTORY: L3-4 DECOMPRESSION/FUSION COMPARISON STUDY: None. FLUOROSCOPY TIME: 16 seconds. FINDINGS: 2 fluoroscopic spot images of the lumbar spine demonstrate posterior decompression and fusi on at L3-L4 with pedicle screws and rods. The hardware is intact. A disc spacer is in place. IMPRESSION: Fluoroscopy provided for L3-L4 posterior decompression and fusion. ACT 112: Negative or not required by law. Electronically signed by: Fadi Kate M.D. 06/18/2021 2:43 PM
--- NOTE | 2021-06-18 15:03 | Hospitalist Progress Note ---
Date of Service June 18, 2021 Assessment & Plan (1) Lumbar radiculopathy: Plan: This is a 76-year-old male who has significant past medical history of HTN, HLD, gout, GERD who presents to ED secondary to worsening symptoms of lumbar radiculopathy. Plan to undergo Lumbar decompression fusion of L3-[address] Reddy today. CXR and EKG reviewed. Pt able to perform at least 4 METS of activity at baseline w/o cardiac symptoms. From a medical standpoint he is cleared for surgery S/P Lumbar Decompression Fusion, L3-L4 by Dr. Sherwood, POD #0 EBL 20ml Pain/wound management per orthopedics activity and therapy as prescribed by ortho encourage incentive spirometry, wean O2 as able monitor H&H, pre op hgb 12.9 (2) HTN (hypertension): Plan: Bp stable continue lisinopril with parameters hold chlorthalidone (3) Dyslipidemia: Plan: continue statin (4) Pre-diabetes: Plan: hyperglycemia noted in ED A1C 6.4 will consult hand tacker monitor accuchecks especially post operatively, if bsg consistently > 180 will a dd coverage anticipate hyperglycemia post op (5) GERD (gastroesophageal reflux disease): Plan: continue PPI (6) Gout: Plan: continue allopurinol Plan: DVT ppx: SCD/TEDS, per surgery Dispo: per primary FULL CODE PCP: Skye Pt was seen and examined in collaboration with Dr. Rivas, please see addendum Thank you for this consultation. We will follow the patient with you during their hospital stay. You can reach a member of the [facility] Hospitalist Team 15/03 via hospitalist role on tiger text. Admission and Anticipated Discharge Date Admission Date: June 16, 2021 Supervising Physician Co-Signing Physician Notes Patient seen and examined today earlier this morning Reports an low back pain radiating to the right leg. Plan for the OR today. Continue pain control Agree with other plans as detailed by Sharon Tang PA-C Subjective Patient seen and examined in room 379-1. Follow up low back pain. Currently complains of 10/10 low back pain. Denies f/c/s, chest pain, sob, n/v/d. Is awaiting surgery time. Discussed with VERO Howell. Review of Systems Review of Systems: All systems reviewed & are unremarkable except as noted in HPI & below Physical Exam Physical Exam: Gen: WD/WN, M, NAD, A&O x3 HEENT: Normocephalic, atraumatic, conjunctivae moist, sclerae anicteric, mucous membranes moist. Lung: Clear to Auscultation bilaterally, no wheezes/rales/rhonchi Heart: Regular rate, regular rhythm, no murmurs, rubs, or gallops Abdomen: Soft, NT, ND +BS x 4 Extremities: No edema Skin: Warm, no rash, negative turgor. Results & Data Results & Data ([facility]) Vital Signs (Past 12 Hours) Vital Signs Temp Pulse Resp BP Pulse Ox 06/18/21 12:25 36.6 C 76 20 123/68 96 06/18/21 07:25 36.6 C 61 16 120/62 93 Laboratory Results Short CBC 06/18/21 Range/Units 06:23 WBC 8.10 (4.8-10.8) K/uL Hgb 12.9 L (14.0-18.0) g/dL Hct 37.6 L (42-52) % Plt Count 273 (130-400) K/uL BMP 06/18/21 06:23 Sodium 135 L Potassium 4.1 D Chloride 105 Carbon Dioxide 25 BUN 18 Creatinine 0.76 Glucose 101 H Calcium 9.1 Diagnostic Findings Lumbar Spine X-Ray 06/18/21 13:00 [place] lumbar spine 2-3V CLINICAL HISTORY: L3-4 DECOMPRESSION/FUSION COMPARISON STUDY: None. FLUOROSCOPY TIME: 16 seconds. FINDINGS: 2 fluoroscopic spot images of the lumbar spine demonstrate posterior decompression and fusion at L3-L4 with pedicle screws and rods. The hardware is intact. A disc spacer is in place. IMPRESSION: Fluoroscopy provided for L3-L4 posterior decompression and fusion. ACT 112: Negative or not required by law. Electronically signed by: Fadi Kate M.D. 06/18/2021 2:43 PM Medications Administered Current Inpatient Medications Acetaminophen (Acetaminophen 500 Mg Tab) 1,000 mg PO Q8H PRN PRN Reason: MILD Pain Scale 1,2,3 & Pre PT Stop: 07/16/21 20:40 Allopurinol (Allopurinol 100 Mg Tab) 100 mg PO QPM JOSUE Stop: 07/16/21 20:59 Last Admin: 06/17/21 20:50 Dose: 100 mg Documented by: Atorvastatin Calcium (Atorvastatin 20 Mg Tab) 20 mg PO QPM JOSUE Stop: 07/16/21 20:59 Last Admin: 06/17/21 20:50 Dose: 20 mg Documented by: Atropine Sulfate (Atropine Sulfate 0.1 Mg/Ml 10ml Syr) 0.5 mg IV Q1M PRN PRN Reason: PACU Use-HR<40 &/or Bradycardi Stop: 06/18/21 19:58 Dextrose (Dextrose 50% 50 Ml Syringe) 25 - 50 ml IV UD PRN; Protocol PRN Reason: Hypoglycemia Protocol Stop: 07/17/21 16:49 Ephedrine Sulfate (Ephedrine Sulfate 50 Mg/Ml Amp) 5 mg IV Q5M PRN PRN Reason: PACU Use Only-SBP<90 mmHg Stop: 06/18/21 19:58 Fentanyl Citrate (Fentanyl Citrate 100 Mcg/2 Ml Vial) 25 mcg IV Q5M PRN PRN Reason: PACU Use Only-Pain Stop: 06/18/21 19:58 Glucagon (Glucagon For Inj 1 Mg Vial) 1 mg SQ UD PRN; Protocol PRN Reason: Hypoglycemia Protocol Stop: 07/17/21 16:49 Glucose (Glucose 10 Tabs/Tube) 4 - 8 tabs PO UD PRN; Protocol PRN Reason: Hypoglycemia Protocol Stop: 07/17/21 16:49 Glucose (Glucose 40% Gel 15 Gm Tube) 15 - 30 gm PO UD PRN; Protocol PRN Reason: Hypoglycemia Protocol Stop: 07/17/21 16:49 Hydromorphone HCl (Hydromorphone Inj 0.5 Mg/0.5 Ml Syr) 0.5 mg IV Q3H PRN PRN Reason: MOD pain (scale 4-6) & Pre PT Stop: 06/30/21 20:40 Last Admin: 06/17/21 04:37 Dose: 0.5 mg Documented by: Hydromorphone HCl (Hydromorphone Inj 1 Mg/Ml Syringe) 1 mg IV Q3H PRN PRN Reason: severe pain (scale 7-10) Stop: 06/30/21 20:40 Last Admin: 06/18/21 11:25 Dose: 1 mg Documented by: Hydromorphone HCl (Hydromorphone Inj 1 Mg/Ml Syringe) 0.25 mg IV Q5M PRN PRN Reason: PACU Use Only-Pain Stop: 06/18/21 19:58 Acetaminophen (Ofirmev) 1,000 mg in 100 mls @ 400 mls/hr IV Q8H PRN PRN Reason: Pain Rating 1-3 & Pre PT Stop: 06/19/21 20:40 Last Infusion: 06/18/21 14:37 Dose: Infused Documented by: Promethazine HCl 12.5 mg/ (Sodium Chloride) 50.5 mls @ 202 mls/hr IV Q6H PRN PRN Reason: Nausea &/or Vomiting Stop: 07/16/21 20:40 Potassium Chloride 40 meq/ (Sodium Chloride) 1,020 mls @ 75 mls/hr IV .[id number] JOSUE Stop: 07/18/21 00:00 Last Admin: 06/18/21 00:26 Dose: 75 mls/hr Documented by: Labetalol HCl (Labetalol Hcl Iv 5 Mg/Ml 20ml) 5 mg IV Q5M PRN PRN Reason: PACU Use-SBP>160 or DBP>100 Stop: 06/18/21 19:58 Lactobacillus Acidoph/Casei/Rhamnos (Advanced Probiotic 1250 Mg Capsule) 2 cap PO DAILY JOSUE Stop: 07/17/21 08:59 Last Admin: 06/18/21 09:24 Dose: Not Given Documented by: Lisinopril (Lisinopril 10 Mg Tab) 10 mg PO QPM [facility] Stop: 07/18/21 20:59 Metoclopramide HCl (Metoclopramide Hcl Inj 5 Mg/Ml 2 Ml Vial) 10 mg IV Q6H PRN PRN Reason: Nausea &/or Vomiting Stop: 07/16/21 20:40 Miscellaneous (Carbohydrates For Hypoglycemia ) 15 - 30 gm PO UD PRN PRN Reason: Hypoglycemia Protocol Stop: 07/17/21 16:49 Naloxone HCl (Naloxone Hcl 0.4 Mg/1 Ml Vial/Carp) 0.1 mg IV Q5M PRN PRN Reason: Oversedation/respiratory dep Stop: 07/16/21 20:40 Ondansetron HCl (Ondansetron Inj 2 Mg/Ml 2 Ml Vial) 4 mg IV Q6H PRN PRN Reason: Nausea &/or Vomiting Stop: 07/16/21 20:40 Last Admin: 06/17/21 06:14 Dose: 4 mg Documented by: Ondansetron HCl (Ondansetron 4 Mg Od Tab) 4 mg PO Q6H PRN PRN Reason: Nausea Stop: 07/16/21 20:40 Ondansetron HCl (Ondansetron Inj 2 Mg/Ml 2 Ml Vial) 4 mg IV ONCE PRN PRN Reason: PACU Use Only-Nausea/Vomiting Stop: 06/18/21 19:58 Oxycodone HCl (Oxycodone Hcl Ir 5 Mg Tab (Immediate Release)) 5 - 10 mg PO Q4H PRN PRN Reason: mod to severe pain Stop: 06/30/21 20:40 Last Admin: 06/17/21 23:22 Dose: 5 mg Documented by: Pantoprazole Sodium (Pantoprazole 40 Mg Tab) 40 mg PO QPM JOSUE Stop: 07/16/21 20:59 Last Admin: 06/17/21 20:51 Dose: 40 mg Documented by: Phenylephrine HCl (Phenylephrine 100mcg/Ml 5ml Syr) 100 mcg IV Q5M PRN PRN Reason: PACU Use Only-SBP<90 or HR>70 Stop: 06/18/21 19:58 Tramadol HCl (Tramadol Hcl 50 Mg Tablet) 50 - 100 mg PO Q4H PRN PRN Reason: Moderate-Severe pain & Pre PT Stop: 07/16/21 20:40
--- NOTE | 2021-06-18 15:18 | Anesthesiology Progress Note ---
Date of Service June 18, 2021 Anesthesia Post Procedure Vital Signs Vital Signs: Temp Pulse Pulse Resp BP BP Pulse Ox 06/18/21 15:00 74 12 120/63 99 06/18/21 14:50 76 12 126/64 99 06/18/21 14:48 36.3 C L 84 15 130/64 100 06/18/21 12:25 36.6 C 76 20 123/68 96 06/18/21 07:25 36.6 C 61 16 120/62 93 06/17/21 23:17 69 102/55 L 06/17/21 22:33 36.9 C 69 16 93/47 L 92 06/17/21 20:53 87 109/75 06/17/21 15:29 36.5 C 74 18 123/71 95 Pain Intensity Back: Pain Intensity: 2 Transfer of Care Handoff Completed per policy Notes Mental Status: alert / awake / arousable Patient Amnestic to Procedure: Yes Nausea / Vomiting: adequately controlled Pain: adequately controlled Airway Patency, RR, SpO2: stable & adequate BP & HR: stable & adequate Hydration State: stable & adequate Anesthetic Complications: no major complications apparent and Pt Satisfied with anesthetic care
[2021-06-18] MEDS ORDERED: diphenhydrAMINE Capsule 25 MG CAP PO PRN (16:11)
[2021-06-18] MEDS ORDERED: ONDANSETRON 4 MG OD TAB PO PRN (16:11)
[2021-06-18] MEDS ORDERED: LORazepam 0.5 MG TAB PO PRN (16:11)
[2021-06-18] MEDS ORDERED: bisacodyL 10 MG SUPP PR PRN (16:11)
[2021-06-18] MEDS ORDERED: ACETAMINOPHEN 500 MG TAB PO PRN (16:11)
[2021-06-18] MEDS ORDERED: LORazepam 0.5 MG/1 ML VIAL IV PRN (16:11)
[2021-06-18] MEDS ORDERED: DO NOT ADMINISTER PNEUMOCOCCAL VACCINE PRN (16:11)
[2021-06-18] MEDS ORDERED: MAGNESIUM HYDROXIDE SUSP 30 ML UDC PO PRN (16:11)
[2021-06-18] MEDS ORDERED: hydrOXYzine HCl 25 MG TAB PO PRN (16:11)
[2021-06-18] MEDS ORDERED: FAMOTIDINE 20 MG TAB PO PRN (16:11)
[2021-06-18] MEDS ORDERED: SOD PHOSPHATE/SOD BIPHOSPHATE ENEMA 132 ML BTL PR PRN (16:11)
[2021-06-18] MEDS ORDERED: DO NOT ADMINISTER FLU VACCINE PRN (16:11)
[2021-06-18] MEDS ORDERED: ALUMINUM/MAGNESIUM SUSP 30 ML UDC PO PRN (16:11)
[2021-06-18] MEDS ORDERED: METOCLOPRAMIDE HCL INJ 5 MG/ML 2 ML VIAL IV PRN (16:11)
[2021-06-18] MEDS ORDERED: ACETAMINOPHEN 1,000 MG/100 ML VIAL IV PRN (16:11)
[2021-06-18] MEDS ORDERED: PROMETHAZINE HCL 12.5 MG in SODIUM CHLORIDE 0.9% 50 ML IV PRN (16:11)
[2021-06-18] MEDS ORDERED: NALOXONE HCL 0.4 MG/1 ML VIAL/CARP IV PRN (16:11)
[2021-06-18] MEDS: LACTATED RINGER'S 1,000 ML IV SCH ×3 (20:14→21:24)
[2021-06-18] MEDS: allopurinoL 100 MG TAB PO SCH (20:14)
[2021-06-18] MEDS: ATORVASTATIN 20 MG TAB PO SCH (20:14)
[2021-06-18] MEDS: ceFAZolin 2000MG 2,000 MG/15 ML SYR IV SCH (20:14)
[2021-06-18] MEDS: ASPIRIN 81 MG ECTAB PO SCH (20:16)
[2021-06-18] MEDS: DOCUSATE SODIUM/SENNA 50/8.6MG TAB PO SCH (20:16)
[2021-06-18] MEDS: MAGNESIUM OXIDE 400 MG TAB PO SCH (20:16)
[2021-06-18] MEDS: CHLORTHALIDONE 25 MG TAB PO SCH (20:16)
[2021-06-18] MEDS ORDERED: lisinopril 10 MG TAB PO SCH (21:00)
[2021-06-18] MEDS: PANTOprazole 40 MG TAB PO SCH (21:19)
[2021-06-19] MEDS: ceFAZolin 2000MG 2,000 MG/15 ML SYR IV SCH (05:55)
[2021-06-19] MEDS: POLYETHYLENE (MIRALAX) 17 GM PACK PO SCH ×4 (05:55→23:03)
[2021-06-19 07:08] LABS: Basophils # (auto) 0.01 K/uL (0-0.2); Basophils % (auto) 0.1 %; Hematocrit (blood only) 34.7 % (42-52); Hemoglobin 12.5 g/dL (14.0-18.0); Immature Granulocytes # (auto) 0.03 K/uL (0.00-0.02); Immature Granulocytes % (auto) 0.2 %; Lymphocytes # (auto) 0.96 K/uL (1.2-3.4); Lymphocytes % (auto) 6.4 %; Mean Corpuscular Volume 91.6 fL (80-100); Mean Platelet Volume 8.9 fL (7.4-10.4); Monocytes # (auto) 1.24 K/uL (0.11-0.59); Monocytes % (auto) 8.2 %; Neutrophils % (auto) 85.1 %; Platelet Count 262 K/uL (130-400); RDW Coefficient of Variation 13.4 % (11.5-14.5); Red Blood Count 3.79 M/uL (4.7-6.1); White Blood Count 15.04 K/uL (4.8-10.8)
[2021-06-19 07:38] LABS: BUN Creatinine Ratio 18.8 (10-20); Calcium 8.8 mg/dl (8.5-10.1); Creatinine Clr Calc Pharmacy 65.5 ml/min; Est GFR (African American) 90.8 ml/min; Est GFR (Non-African American) 78.4 ml/min; Potassium 3.8 mmol/L (3.5-5.1)
[2021-06-19] MEDS: ADVANCED PROBIOTIC 1250 MG CAPSULE PO SCH (09:18)
[2021-06-19] MEDS: dexAMETHasone 8 MG in SYRINGE 0 ML IV SCH (09:18)
--- NOTE | 2021-06-19 10:20 | Orthopedic Progress Note ---
Date of Service June 19, 2021 Assessment & Plan (1) Lumbar radiculopathy: Plan: At this time he is demonstrating marked improvement. We will continue with physical therapy monitor his JANNY output of a discharge home the next day or so. Admission and Anticipated Discharge Date Admission Date: June 16, 2021 Subjective Back pain controlled leg symptoms markedly improved Physical Exam Physical Exam: Patient appears comfortable. Has marked improvement of strength to detailed testing the right lower extremity. Results & Data ([facility]) Vital Signs (Past 12 Hours) Vital Signs Temp Pulse Resp BP Pulse Ox 06/19/21 07:57 36.9 C 71 16 130/70 94 06/19/21 03:30 36.9 C 81 18 134/72 92
--- NOTE | 2021-06-19 11:15 | Hospitalist Progress Note ---
Date of Service June 19, 2021 Assessment & Plan (1) Lumbar radiculopathy: Plan: This is a 76-year-old male who has significant past medical history of HTN, HLD, gout, GERD who presents to ED secondary to worsening symptoms of lumbar radiculopathy. POD #1 s/p Lumbar decompression fusion of L3-[address] 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 Rivas, please see addendum Thank you for this consultation. We will follow the patient with you during their hospital stay. You can reach a member of the [facility] Hospitalist Team 15/03 via hospitalist role on tiger text. Admission and Anticipated Discharge Date Admission Date: June 16, 2021 Supervising Physician Co-Signing Physician Notes Patient seen and examined today earlier this morning S/p lumbar decompression POD#1 for lumbar radiculopathy Pain is controlled Denied any complaints at the time of evaluation Hb is stable PT/OT Agree with other plans as detailed by Becki Hudson PA-C Subjective Seen and examined in 379 bed 1. Feeling well today, denying any surgical site pain or pain/paresthesias in bilateral lower extremities. Ambulating without issue with PT. Tolerating diet. No fever, chills, lightheadedness, chest pain, shortness of breath, nausea, vomiting, abdominal pain, dysuria. Passing flatus, no postop bowel movement yet. Review of Systems Review of Systems: At least ten systems reviewed and negative except as noted in the HPI. Physical Exam Physical Exam: Gen: WD/WN, NAD, lying in bed comfortably, A&Ox3 HEENT: Normocephalic, atraumatic, conjunctivae moist, sclerae anicteric, mucous membranes moist Lung: Clear to Auscultation bilaterally, no wheezes/rales/rhonchi Heart: Regular rate, regular rhythm, no murmurs, rubs, or gallops Abdomen: Soft, NT, ND +BS x 4 Extremities: Spinal dressing c/d/i. JANNY drain visualized. No edema Skin: Warm, no rash Results & Data Results & Data ([facility]) Vital Signs (Past 12 Hours) Vital Signs Temp Pulse Resp BP Pulse Ox 06/19/21 07:57 36.9 C 71 16 130/70 94 06/19/21 03:30 36.9 C 81 18 134/72 92 Laboratory Results Short CBC 06/19/21 Range/Units 06:33 WBC 15.04 H (4.8-10.8) K/uL Hgb 12.5 L (14.0-18.0) g/dL Hct 34.7 L (42-52) % Plt Count 262 (130-400) K/uL BMP 06/19/21 06:33 Sodium 134 L Potassium 3.8 Chloride 99 Carbon Dioxide 26 BUN 17 Creatinine 0.93 Glucose 143 H Calcium 8.8 Diagnostic Findings Lumbar Spine CT 06/16/21 15:[address] WITHOUT CONTRAST CLINICAL HISTORY: severe back pain radiating down R leg COMPARISON STUDY: No previous studies for comparison. TECHNIQUE: Axial images of the lumbar spine were obtained without IV contrast. Sagittal and coronal reconstructions were viewed. Automated exposure control was utilized for the study. A dose lowering technique was utilized adhering to the principles of ALARA. FINDINGS: For purposes of numbering on this exam, L5-S1 disc space is assigned to axial image 247 of 292. Alignment of the lumbar spine is anatomic. There is no acute fracture. There is no suspicious lesion by CT. Numerous bilateral renal calculi measure up to 5 mm. There is no hydronephrosis. Paravertebral soft tis sues are unremarkable. There is moderate multilevel facet arthrosis and degenerative disc disease within the lumbar spine. The central canal and neural foramen are suboptimally assessed by CT. Central canal stenosis is most pronounced at L3-L4. There is probable moderate central canal stenosis at this level. There is also a probable right paracentral disc herniation with inferior subligamentous migration. This has mass effect upon the descending right L4 nerve root. There is moderate multilevel neural foraminal stenosis. IMPRESSION: 1. No acute lumbar spine fracture or subluxation. 2. Multilevel degenerative disc disease and facet arthrosis within the lumbar spine. Suboptimal evaluation of the central canal and neural foramen given CT technique. Suspected moderate central canal stenosis at L3-L4 with a probable right paracentral disc herniation with inferior subligamentous migration. Severe narrowing of the right lateral recess with probable mass effect upon the descending right L4 nerve root. MRI could be obtained for confirmation. 3. Moderate multilevel neural foraminal stenosis. 4. Bilateral nephrolithiasis. ACT 112: Negative or not required by law. Electronically signed by: Jorge Alberto Joyce M.D. 06/16/2021 4:19 PM Chest X-Ray 06/17/21 07:36 XR chest 1V portable HISTORY: Preop. COMPARISON: None. FINDINGS: The lungs are clear. Cardiac silhouette is normal in size. No pleural effusions. No pneumothorax. IMPRESSION: No acute process. ACT 112: Negative or not required by law. Electronically signed by: Fadi Kate M.D. 06/17/2021 8:38 AM Lumbar Spine X-Ray 06/18/21 13:00 FL lumbar spine 2-3V CLINICAL HISTORY: L3-4 DECOMPRESSION/FUSION COMPARISON STUDY: None. FLUOROSCOPY TIME: 16 seconds. FINDINGS: 2 fluoroscopic spot images of the lumbar spine demonstrate posterior decompression and fusion at L3-L4 with pedicle screws and rods. The hardware is intact. A disc spacer is in place. IMPRESSION: Fluoroscopy provided for L3-L4 posterior decompression and fusion. ACT 112: Negative or not required by law. Electronically signed by: Fadi Kate M.D. 06/18/2021 2:43 PM
[2021-06-19] MEDS: oxyCODONE HCL IR 5 MG TAB (IMMEDIATE RELEASE) PO PRN (14:47)
[2021-06-19] MEDS: CHLORTHALIDONE 25 MG TAB PO SCH (20:10)
[2021-06-19] MEDS: allopurinoL 100 MG TAB PO SCH (20:10)
[2021-06-19] MEDS: PANTOprazole 40 MG TAB PO SCH (20:11)
[2021-06-19] MEDS: DOCUSATE SODIUM/SENNA 50/8.6MG TAB PO SCH (20:11)
[2021-06-19] MEDS: ATORVASTATIN 20 MG TAB PO SCH (20:11)
[2021-06-19] MEDS: MAGNESIUM OXIDE 400 MG TAB PO SCH (20:12)
[2021-06-19] MEDS: ASPIRIN 81 MG ECTAB PO SCH (20:12)
[2021-06-19] MEDS ORDERED: lisinopril 20 MG TAB PO SCH (21:00)
[2021-06-20] MEDS: POLYETHYLENE (MIRALAX) 17 GM PACK PO SCH (06:04)
[2021-06-20 06:49] LABS: Hematocrit (blood only) 33.8 % (42-52); Hemoglobin 11.9 g/dL (14.0-18.0); Mean Corpuscular Hgb Conc 35.2 g/dL (32-36); Mean Corpuscular Volume 90.9 fL (80-100); Mean Platelet Volume 8.9 fL (7.4-10.4); Platelet Count 270 K/uL (130-400); RDW Coefficient of Variation 13.7 % (11.5-14.5); RDW Standard Deviation 45.5 fL (36.4-46.3); Red Blood Count 3.72 M/uL (4.7-6.1); White Blood Count 15.62 K/uL (4.8-10.8)
[2021-06-20 07:18] LABS: BUN Creatinine Ratio 30.2 (10-20); Calcium 9.1 mg/dl (8.5-10.1); Creatinine Clr Calc Pharmacy 71.6 ml/min; Est GFR (African American) 96.7 ml/min; Est GFR (Non-African American) 83.5 ml/min; Potassium 3.7 mmol/L (3.5-5.1)
[2021-06-20 07:32] VITALS: BP 135/72; PULSE 79; TEMP 97.9; O2SAT 92
[2021-06-20] MEDS: ADVANCED PROBIOTIC 1250 MG CAPSULE PO SCH (08:56)
[2021-06-20] MEDS: dexAMETHasone 8 MG in SYRINGE 0 ML IV SCH (08:56)
[2021-06-20] MEDS: oxyCODONE HCL IR 5 MG TAB (IMMEDIATE RELEASE) PO PRN (10:01)
--- NOTE | 2021-06-20 11:12 | Hospitalist Progress Note ---
Date of Service June 20, 2021 Assessment & Plan (1) Lumbar radiculopathy: Plan: This is a 76-year-old male who has significant past medical history of HTN, HLD, gout, GERD who presents to ED secondary to worsening symptoms of lumbar radiculopathy. POD #2 s/p Lumbar decompression fusion of L3-[address] Reddy today Per ortho for pain control, wound care, anticoagulation and activities Monitor H&H (hgb 11.9 today from 12.9 pre-op, EBL 20ml) Continue incentive spirometry, PT/OT when appropriate (2) HTN (hypertension): Plan: Bp stable Resumed normal dose of lisinopril yesterday Resume chlorthalidone at discharge (3) Dyslipidemia: Plan: Continue statin (4) Pre-diabetes: Plan: Hyperglycemia noted in ED A1C 6.4 distribution sales manager consulted Monitor accuchecks especially post operatively, if bsg consistently > 180 will add coverage Anticipate hyperglycemia post op (5) GERD (gastroesophageal reflux disease): Plan: Continue PPI (6) Gout: Plan: Continue allopurinol Plan: DVT ppx: SCD/TEDS, per surgery Dispo: per primary FULL CODE PCP: Skye Pt was seen and examined in collaboration with Dr. Rivas, please see addendum Thank you for this consultation. We will follow the patient with you during their hospital stay. You can reach a member of the [facility] Hospitalist Team 15/03 via hospitalist role on tiger text. Admission and Anticipated Discharge Date Admission Date: June 16, 2021 Supervising Physician Co-Signing Physician Notes Patient seen and examined today earlier this morning S/p lumbar decompression POD#2 for lumbar radiculopathy Reports pain is controlled Stable for discharge Agree with other plans as detailed by Becki Hudson PA-C Subjective Seen and examined in 379 bed 1. Feeling well today, ready for discharge. Denies any surgical site pain or pain/paresthesias in bilateral lower extremities. Ambulating without issue with PT. Tolerating diet. No fever, chills, lightheadedness, chest pain, shortness of breath, nausea, vomiting, abdominal pain, dysuria. Had bowel movement this morning. Review of Systems Review of Systems: At least ten systems reviewed and negative except as noted in the HPI. Physical Exam Physical Exam: Gen: WD/WN, NAD, lying in bed comfortably, A&Ox3 HEENT: Normocephalic, atraumatic, conjunctivae moist, sclerae anicteric, mucous membranes moist Lung: Clear to Auscultation bilaterally, no wheezes/rales/rhonchi Heart: Regular rate, regular rhythm, no murmurs, rubs, or gallops Abdomen: Soft, NT, ND +BS x 4 Extremities: Spinal dressing c/d/i. No edema Skin: Warm, no rash Results & Data Results & Data ([facility]) Vital Signs (Past 12 Hours) Vital Signs Temp Pulse Resp BP Pulse Ox 06/20/21 10:17 36.6 C 79 16 135/72 92 06/20/21 07:30 36.6 C 79 16 135/72 92 Laboratory Results Short CBC 06/20/21 Range/Units 06:24 WBC 15.62 H (4.8-10.8) K/uL Hgb 11.9 L (14.0-18.0) g/dL Hct 33.8 L (42-52) % Plt Count 270 (130-400) K/uL BMP 06/20/21 06:32 Sodium 134 L Potassium 3.7 Chloride 102 Carbon Dioxide 25 BUN 26 H D Creatinine 0.85 Glucose 118 H Calcium 9.1 Diagnostic Findings Lumbar Spine CT 06/16/21 15:[address] WITHOUT CONTRAST CLINICAL HISTORY: severe back pain radiating down R leg COMPARISON STUDY: No previous studies for comparison. TECHNIQUE: Axial images of the lumbar spine were obtained without IV contrast. Sagittal and coronal reconstructions were viewed. Automated exposure control was utilized for the study. A dose lowering technique was utilized adhering to the principles of ALARA. FINDINGS: For purposes of numbering on this exam, L5-S1 disc space is assigned to axial image 247 of 292. Alignment of the lumbar spine is anatomic. There is no acute fracture. There is no suspicious lesion by CT. Numerous bilateral renal calculi measure up to 5 mm. There is no hydronephrosis. Paravertebral soft tissues are unremarkable. There is moderate multilevel facet arthrosis and degenerative disc disease within the lumbar spine. The central canal and neural foramen are suboptimally assessed by CT. Central canal stenosis is most pronounced at L3-L4. There is probable moderate central canal stenosis at this level. There is also a probable right paracentral disc herniation with inferior subligamentous migration. This has mass effect upon the descending right L4 nerve root. There is moderate multilevel neural foraminal stenosis. IMPRESSION: 1. No acute lumbar spine fracture or subluxation. 2. Multilevel degenerative disc disease and facet arthrosis within the lumbar spine. Suboptimal evaluation of the central canal and neural foramen given CT technique. Suspected moderate central canal stenosis at L3-L4 with a probable ri ght paracentral disc herniation with inferior subligamentous migration. Severe narrowing of the right lateral recess with probable mass effect upon the descending right L4 nerve root. MRI could be obtained for confirmation. 3. Moderate multilevel neural foraminal stenosis. 4. Bilateral nephrolithiasis. ACT 112: Negative or not required by law. Electronically signed by: Jorge Alberto Joyce M.D. 06/16/2021 4:19 PM Chest X-Ray 06/17/21 07:36 XR chest 1V portable HISTORY: Preop. COMPARISON: None. FINDINGS: The lungs are clear. Cardiac silhouette is normal in size. No pleural effusions. No pneumothorax. IMPRESSION: No acute process. ACT 112: Negative or not required by law. Electronically signed by: Fadi Kate M.D. 06/17/2021 8:38 AM Lumbar Spine X-Ray 06/18/21 13:00 FL lumbar spine 2-3V CLINICAL HISTORY: L3-4 DECOMPRESSION/FUSION COMPARISON STUDY: None. FLUOROSCOPY TIME: 16 seconds. FINDINGS: 2 fluoroscopic spot images of the lumbar spine demonstrate posterior decompression and fusion at L3-L4 with pedicle screws and rods. The hardware is intact. A disc spacer is in place. IMPRESSION: Fluoroscopy provided for L3-L4 posterior decompression and fusion. ACT 112: Negative or not required by law. Electronically signed by: Fadi Kate M.D. 06/18/2021 2:43 PM
--- NOTE | 2021-06-20 15:54 | Discharge Summary ---
Date of Service June 20, 2021 Admission HPI Per Admitting Provider Patient is a pleasant 76-year-old male who has been having difficulties with pain coming from the right buttock going down the right thigh. Originally it was thought that he had an issue with his hip. He did undergone an MRI of his right hip with minimal pathology noted. An MRI of his lumbar spine revealed an L3-4 right-sided disc herniation with inferior migration or free fragment he was treated through pain management as an outpatient. Over the past 3 days he has had significant increase in pain in the right leg when he leaned forward to pick something up. He contacted the office stating that he was unable to walk and is referred to the emergency room. He was given pain medications as well as steroids and the pain was somewhat better in the emergency room. This morning however his pain is worse. He can barely roll over in bed. He is afraid to try to stand and walk as his right leg feels weak and feels it is going to give out. He is not having symptoms on the left-hand side. He denies any other numbness, tingling, or paresthesias. Principal Diagnosis Lumbar spinal stenosis with herniated nucleus pulposis L3-L4 Discharge Data Allergies Allergy/AdvReac Type Severity Reaction Status Date / Time Tetanus Vaccines and Toxoid Allergy Intermediate Rash Verified 06/16/21 16:29 Consultations 06/16/21 16:16 ED Decision to Admit Stat 06/16/21 20:41 Consult Internal Medicine Routine 06/17/21 07:36 Consult Anesthesiology Routine Procedures Performed Operation Date: 06/18/21 08:25 Actual Procedures p L3-L4 Decompression Fusion(Not Applicable) - Bereket Reddy, Ordered Studies 06/16/21 15:26 CT lumbar spine wo con Stat 06/18/21 13:00 FL lumbar spine 2-3V Routine Hospital Course (1) Lumbar radiculopathy: Patient was admitted with severe back pain and weakness. He subsequently underwent lumbar decompression fusion at L3-L4 to address his severe neural compression and disc condition. He tolerated procedure well was taken to orthopedic for possibly. Postop day #1 he was up and ambulating progressed up to postop day #2 JANNY drain decreasing appropriately. Pain well controlled. Strength markedly improved. Subsequent discharge home. Discharge orders instr uctions found the chart for further review. Total Time Total Time Spent Total Time Spent (In Minutes): 20 minutes Discharge Plan Discharge Items Patient Disposition: Home - Self-Care Reason For Visit: LEG WEAKNESS Discharge Diagnosis: Lumbar spinal stenosis with radiculopathy Activity: As commented below Non-emergency contact: Primary Care Provider Call non-emergency contact if: you have any medication questions Follow-up/Referrals: Alonzo Cheung [Primary Care Provider] - Diet: Regular Addtl Attending Provider Instructions: ACTIVITY RECOMMENDATIONS: SELF CARE INSTRUCTIONS AFTER THORACIC/LUMBAR FUSIONS 1. You may walk to your tolerance. It is good exercise for your legs and back. Expect some back and intermittent leg aches and pains. 2. You may perform "counter-top" level activities (make a sandwich, rona with a project, etc.). 3. No bending or lifting of more than 10 pounds or back twisting of any nature (roll like a log when turning in bed). 4. You may ride in a car for 20-30 minutes at a time. No driving until after your first visit with your doctor. 5. Frequent changes of position and restricting sitting to 30 minutes at a time will help limit the amount of back spasms and stiffness you may experience. 6. You may discontinue the use of ambulatory aids (cane, crutches, etc.) once your strength and confidence allow. 7. You may instructor correspondence school the shower and let water strike your incision when you arrive home at least once daily. Do not take a tub bath, sit in a hot tub or go into a swimming pool until after your first recheck in the office. SPECIAL CARE INSTRUCTIONS: VERY IMPORTANT TO READ AND REVIEW A. Your surgical incision has been closed with a cosmetic suture under the skin that will dissolve in about 6 weeks. In 14 days, you can use a pair of clean scissors and cut the suture that is left outside of the skin at the ends of your incision. 1. The small skin tapes can be removed 7 days after surgery if they have not fallen off by that point. 2. You may keep the wound open to air as much as possible to promote healing after post-op day number 5 unless told otherwise by your doctor. 3. If you think the wound looks like it is becoming infected (redness or worsening drainage) and/or you are experiencing fever, chill or worsening back pain and muscle spasms, contact the office so that we may evaluate you as soon as possible. B. Complications are uncommon, but please contact us if you have any signs or symptoms of: 1. wound infection (fever higher than 102.5 degrees F, redness, separation of wound, drainage, or increasing pain from the incision) 2. blood clots in legs (pain, swelling, redness and warmth in legs) 3. urinary tract infection (fever higher than 102.5 degrees F, burning upon urination or increased frequency of urination) 4. nerve problems (inability to walk on your toes or heels, numbness, loss of bowel or bladder control) 5. any other symptoms that concern you C. Please call the office at if you have any concerns or questions about your operation or recovery. D. No smoking! Smoking drastically decreases the chance of a solid fusion. E. Do not take any anti-inflammatory medications (Indocin, Advil, Motrin, Aspirin, Naprosyn, etc.) as these may inhibit the chance of a solid fusion. Tylenol is okay to take for pain. MANAGING PAIN AFTER SPINAL SURGERY 1. Narcotic medication is intended for short-term use and will be provided for surgical pain. Surgical pain usually lasts for a period of 4-6 weeks. Narcotic medication includes Percocet, Vicodin, Darvocet, Tylenol #3 or Lortab. 2. Longer-term pain is more appropriately treated with non-narcotic medication such as Tylenol ES. 3. Muscle spasm is not appropriately treated with narcotics. Muscle relaxers such as Soma, Flexeril or Skelaxin can be used along with Tylenol ES. 4. Remember that we all live with some "aches and pains". This is not unusual or uncommon after an injury or as we get older. a. Back pain is expected and may include muscle spasms for 4 to 6 weeks after surgery. The pain should gradually improve. If the pain worsens for no apparent reason, please contact the office. b. Intermittent leg pain may also be experienced and should not be concerned about unless it worsens for no apparent reason. If so, please contact the office. 5. We will provide appropriate medication within the normal guidelines of their prescribed use. We will also be very cautious and aware of potential abuse and extended duration of patients' medication needs. a. Pain medications are for your comfort and to assist with sleep and rest so that the tissue can heal. They are not provided in order to return to normal activity and should not be used through the day. To do so or worsening pain at night can result from ongoing tissue damage and de velopment of tolerance to the prescribed medicine. 6. Please allow 2-3 days to process refills. Prescriptions will not be mailed but must be picked up at the office. FOLLOW UP VISIT: Keep your scheduled follow-up appointment. Any questions, please call the office at . Pending Studies at Discharge: No Stand-Alone Forms: My [facility] [employer], Smoking Cessation Medications and DC Order Prescriptions: New oxycodone 5 mg tablet 5 mg PO Q6H PRN (Reason: pain, severe) Qty: 30 RF: 0 tramadol 50 mg tablet 50 mg PO Q6H PRN (Reason: pain, moderate) Qty: 30 RF: 0 Continued atorvastatin 20 mg tablet 20 mg PO QPM RF: 0 lisinopril 20 mg tablet 20 mg PO QPM RF: 0 chlorthalidone 25 mg tablet 25 mg PO QPM RF: 0 allopurinol 100 mg tablet 100 mg PO QPM RF: 0 aspirin 81 mg Tablet,Delayed Release (Dr/Ec) 81 mg PO QPM RF: 0 magnesium oxide 400 mg (241.3 mg magnesium) tablet 400 mg PO QPM RF: 0 omeprazole 20 mg capsule,delayed release(DR/EC) 20 mg PO QPM RF: 0 Probiotic 10 billion cell Capsule 10,000 mmu cells PO DAILY RF: 0 Discharge Orders: Discharge Order (Routine); Ordered 06/20/21 Ordered By: Bereket Baum/Other Patient Handouts: A1C, Staff Ed: Good Body Mechanics, Staff Ed: Back Safety, 5 Steps for Eating Healthier Admission Data Admit Date/Time: 06/16/21 16:17 Attending Provider: Bereket Reddy Admit Provider: Bereket Reddy Primary Care Provider: Alonzo Cheung Other Providers: Sharon Muniz ; Courtney Ge ; Farheen Rivas I. ; Bereket Reddy ; Lakisha Hill ; Idris Bates ; Becki Hudson Other Interventions: Discharge Summary Assessment (RN) Last Done: 06/20/21 10:17
== END 2021-06-20 11:50 | disposition home or self-care (01) | DRG 455 ==
LOC: ED 14:17 → 3N 16:17